=== PATIENT | male | born 1965 | race African-American/Black ===

== ENCOUNTER 2016-09-10 17:11 | Emergency (ER) | payer OTHER ==
[~2016-09-10] VITALS: Ht 188 cm; Wt 117.0 kg
[2016-09-10] MEDS ORDERED: Oxycodone/Acetaminophen 5-325 ORAL ONE (17:30)
[2016-09-10] MEDS ORDERED: Ketorolac 60mg Inj IM ONE (17:30)
--- NOTE | 2016-09-10 17:31 | Emergency Room Report ---
History of Present Illness General Chief Complaint: Lower Back Pain or Injury Source: Patient Present Illness HPI 50YOM BIBEMS with right lower back pain since this morning. Woke up with it. Non-radiating. Pain builds up and then releases. Worse with movement, coughing. No assoc urinary complaints or gross hematuria. No fever/chills. No history of LBP. No history of renal stones. 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 No recent heavy lifting or straining. Didnt take anything for pain at home. Allergies: Coded Allergies: No Known Allergies (Unverified , 09/10/16) Patient History Past Medical History: DM Past Surgical History: none Pertinent Family History: none Social History: Denies: alcohol use, drug use, smoking Immunizations: UTD Reviewed Nursing Documentation: PMH: Agreed, PSxH: Agreed Nursing Documentation-PMH Hx Hypertension: Yes Hx Asthma: Yes Hx Diabetes: Yes Review of Systems All Other Systems: negative except mentioned in HPI Physical Exam Vital Signs Date Time Temp Pulse Resp B/P Pulse Ox O2 Delivery O2 Flow Rate FiO2 09/10/16 17:03 97.7 66 18 117/79 96 Room Air Sp02 EP Interpretation: reviewed, normal General Appearance: normal inspection, well appearing, no apparent distress, alert, GCS 15, non-toxic Head: normocephalic, atraumatic Eyes: bilateral eye EOMI, bilateral eye PERRL ENT: normal ENT inspection, hearing grossly normal, normal voice Neck: normal inspection, full range of motion, supple, no bony tend Respiratory: normal inspection, lungs clear, normal breath sounds, no respiratory distress, no retraction, no wheezing Cardiovascular #1: regular rate, rhythm, no edema Gastrointestinal: normal inspection, normal bowel sounds, non tender, soft, no guarding, no hernia Genitourinary: CVA tenderness (R) Musculoskeletal: other - Right lower back ttp, para-verteb area. + SLR on LEFT , causes pain to right lower back. 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 Afebrile. Right lower back pain - Low suspicion for cord compression given well appearance, right CVAT, no focal neuro deficits, absence of midline ttp/masses and pain worse with movement , and right renal stone being more likely diagnosis - Analgesia provided in ED - UA with hematuria, no UTI - Labs: No leuks. H&H stable. Lipase, LFTS normal - CTAP: Small umbilical hernia. No stones visualized - ?possibly paced renal stone - Will Rx with flomax, Ibuprofen, encouraging fluids - PMD followup as needed Last Vital Signs Date Time Temp Pulse Resp B/P Pulse Ox O2 Delivery O2 Flow Rate FiO2 09/10/16 17:03 97.7 66 18 117/79 96 Room Air Status: improved Disposition: HOME, SELF-CARE Scripts Tamsulosin HCl (Flomax) 0.4 Mg Cap.er.24h 0.4 MG ORAL DAILY for 7 Days, #7 CAP Prov: YASSINE HAINES M.D. 09/10/16 Ibuprofen* (MOTRIN*) 800 Mg Tablet 800 MG ORAL THREE TIMES A DAY for For Pain for 7 Days, #30 TAB 0 Refills Prov: YASSINE HAINES M.D. 09/10/16 YASSINE HAINES M.D. September 10, 2016 17:31
[2016-09-10 17:36] VITALS: BP 121/76
[2016-09-10] MEDS ORDERED: ROBAXIN-750750 MG PO (18:07)
[2016-09-10] MEDS ORDERED: IBUPROFEN800 MG ORAL (18:07)
[2016-09-10 18:16] LABS: APPEARANCE,URINE CLEAR; KETONES,URINE NEGATIVE (NEGATIVE); LEUKOCYTE ESTERASE ,URINE 1+ (NEGATIVE); NITRITE,URINE NEGATIVE (NEGATIVE); PH,URINE 8 (4.5-8.0); PROTEIN,URINE NEGATIVE (NEGATIVE); UROBILINOGEN,URINE 8 MG/DL (0.0-1.0)
[2016-09-10 18:26] LABS: BACTERIA,URINE OCCASIONAL /HPF; RBC,URINE 15-20 /HPF (0 - 0); SQUAMOUS EPITHELIAL CELL,UR OCCASIONAL /LPF (NONE/OCC)
[2016-09-10 18:45] VITALS: BP 124/78
[2016-09-10 18:48] LABS: BASOPHILS % (AUTO) 1.5 % (0.0-2.0); EOSINOPHILS % (AUTO) 4.6 % (0.0-3.0); LYMPHOCYTES % (AUTO) 41.2 % (20.0-45.0); MEAN CORPUSCULAR HEMOGLOBIN 30.8 PG (27.0-31.0); MEAN CORPUSCULAR VOLUME 88 FL (80-99); MEAN PLATELET VOLUME 5.4 FL (6.5-10.1); MONOCYTES % (AUTO) 6.6 % (1.0-10.0); NEUTROPHILS % (AUTO) 46.2 % (45.0-75.0); PLATELET COUNT 227 K/UL (150-450); RED BLOOD COUNT 4.48 M/UL (4.70-6.10); RED CELL DISTRIBUTION WIDTH 12.8 % (11.6-14.8); WHITE BLOOD COUNT 5.6 K/UL (4.8-10.8)
[2016-09-10 19:06] LABS: ALANINE AMINOTRANSFERASE 20 U/L (3-41); ALBUMIN/GLOBULIN RATIO 0.7 (1.0-2.7); ANION GAP 12 (5-15); ASPARTATE AMINO TRANSFERASE 22 U/L (5-40); CALCIUM 9.2 mg/dL (8.6-10.2); CARBON DIOXIDE 25 mEQ/L (20-30); CHLORIDE 99 mEQ/L (98-107); CREATININE 1.2 mg/dL (0.7-1.2); GLOMERULAR FILTRATION RATE > 60 mL/min (>60); HEMOLYSIS 8; LIPASE 29 U/L (< 60); POTASSIUM 4.1 mEQ/L (3.4-4.9); SODIUM 136 mEQ/L (135-145); TOTAL PROTEIN 7.7 g/dL (6.6-8.7)
[2016-09-10] MEDS ORDERED: FLOMAX0.4 MG ORAL (19:14)
[2016-09-10] MEDS ORDERED: Tamsulosin 0.4mg cap ORAL SCH (19:15)
[2016-09-10 19:27] VITALS: BP 124/78
--- NOTE | 2016-09-11 09:58 | Diagnostic Imaging Report ---
Indication: Abdominal pain Technique: Continuous helical transaxial imaging of the abdomen and pelvis was obtained from the lung bases to the pubic symphysis. No intravenous contrast was administered. Coronal 2-D reformats were also obtained. Total Dose length Product (DLP): [address] Dose Index Volume (CTDIvol): 19 mGy Comparison: none Findings: 2 mm nodule noted at the periphery of the left lung base. The liver is prominent. Gallbladder is contracted. No nephrolithiasis identified. The appendix is normal. No hydronephrosis demonstrated. No free fluid or free air identified. Few diverticula noted in the colon. Right inguinal hernia containing fat demonstrated. Impression: No acute findings identified Small umbilical hernia Right inguinal hernia containing fat Mild hepatomegaly The CT scanner at [facility] is accredited by the [employer] and the scans are performed using dose optimization techniques as appropriate to a performed exam including Automatic Exposure control.
== END 2016-09-10 19:28 | disposition home or self-care (01) ==
LOC: EDBD 17:11 → EMR 18:39
DX: M54.5 Low back pain (principal); I10 Essential (primary) hypertension; E11.9 Type 2 diabetes mellitus without complications; J45.909 Unspecified asthma, uncomplicated; R31.9 Hematuria, unspecified; K44.9 Diaphragmatic hernia without obstruction or gangrene
CPT/HCPCS: 36415; 74176; 80053; 81003; 83690; 85025; 96372; 96374